=== PATIENT | male | born 1975 | race African-American/Black ===

== ENCOUNTER 2018-08-27 06:29 | Day surgery (SDC) | payer OTHER ==
[2018-08-27] VITALS (11 sets, daily range): BP systolic 110–125; BP diastolic 68–81; PULSE 54–64; RESP 10–18; Ht 177.8 cm; Wt 86.1 kg
[~2018-08-27] VITALS: Ht 177.8 cm; Wt 86.1 kg
[~2018-08-27 06:29] MED LIST: CEFAZOLIN 2 GM/50 ML (PMX) 50 ML IVPB SCH; SOD CHLORIDE 0.9% 1,000 ML IV SCH
[2018-08-27] MEDS ORDERED: ALBU90AE INHALATION (07:56)
[2018-08-27] MEDS ORDERED: MONT10TA24 PO (07:57)
[2018-08-27] MEDS ORDERED: BUPIVACAINE 0.25% (MPF) 30 ML INJ ONE (09:05)
--- NOTE | 2018-08-27 09:18 | PREAC ---
Date/Time of Note Date/Time of Note DATE: 08/27/18 TIME: 09:18 Anesthesia Eval and Record Evaluation Time Pre-Procedure Interview DATE: 08/27/18 TIME: 09:18 Age 43 Sex male NPO: 8 hrs Preoperative diagnosis scalp mass Planned procedure excision Past Medical History Past Medical History: Includes Pulm: Asthma Surgery & Anesthesia Issues No known issue Meds Anticoagulation: No Beta Kamilla within 24 hr: No Reason Beta Kamilla not given: Pt. not on B-Kamilla Reported Medications Montelukast Sodium* (Montelukast Sodium*) 10 Mg Tablet, 10 MG PO QHS, #30 TAB 08/27/18 Albuterol Sulfate (Proair Respiclick) 90 Mcg Aer.pow.ba, 1 PUFF INHALATION Q4 PRN for asthma attack, #1 BOTTLE 08/27/18 Current Medications Sodium Chloride 1,000 ml @ 75 mls/hr [id number] IV Last administered on 08/27/18at 07:41; Admin Dose 75 MLS/HR; Start 08/27/18 at 06:00; Stop 08/27/18 at 19:19 Cefazolin Sodium/ Dextrose 50 ml @ 100 mls/hr PREOP IVPB ; Start 08/27/18 at 06:00; Stop 08/27/18 at 19:00 Meds reviewed: Yes Allergies Coded Allergies: No Known Allergy (Unverified , 08/27/18) Allergies Reviewed: Yes Labs/Studies Labs Reviewed: Reviewed by anesthesiologist Result Diagram: 08/27/18 0730 08/27/18 0730 Laboratory Tests 08/27/18 07:30 test: N/A Pre-procedure Exam Last vitals Vital Signs Date Temp Pulse Resp B/P (MAP) Pulse Ox O2 O2 Flow FiO2 Time Delivery Rate 08/27/18 96.7 56 16 111/74 99 Room Air 07:48 (86) Airway: Adequate mouth opening, Adequate thyromental dist Mallampati: Mallampati I Teeth: Normal Lung: Normal Heart: Normal ASA Physical Status ASA physical status: 2 Emergency: None Pre-operative Attestations Prior to commencing anesthesia and surgery, the patient was re-evaluated, there was verification of: *The patient's identity *The results of appropriate recent lab work and preoperative vital signs *The above evaluation not changing prior to induction *Anesthetic plan, risk benefits, alternative and complications discussed with patient/family; questions answered; patient/family understands, accepts and wishes to proceed. YOHAN RG DO Aug 27, 2018 09:18
[2018-08-27] MEDS ORDERED: HYDROCODONE/APAP (5/325) TAB PO ONE (10:00)
--- NOTE | 2018-08-27 10:01 | OPR ---
Date/Time of Note Date/Time of Note DATE: 08/27/18 TIME: 09:59 Operative Report Procedure Date: Aug 27, 2018 Preoperative Diagnosis left scalp mass 3 cm Postoperative Diagnosis same Operation/Procedure Performed 1. excision of left scalp mass 3 cm 2. localized adjacent tissue transfer with the use of skin flaps 6 sq cm defect of left scalp 3. therapeutic injection of subcutaneous local anesthesia Surgeon see signature line Envelope Stuffer none Anesthesia Type: general Estimated Blood Loss: 0 - 10 ml's Transfusion none Specimen left scalp mass Grafts/Implants none Complications none Pt Condition Post Procedure: stable Indications This is a 43-year-old male with a left scalp mass. He request surgical excision of the mass. Risks alternatives benefits and personally discussed the patient. Patient expressed understanding and consents to the operation. Procedure Description Patient is taken to the OR and prepped and draped in usual sterile fashion. Surgical time was performed. IV antibiotics given. Transverse incision was made over the left posterior scalp mass. Dissection with cardioscan to the mass. The mass was then circumferentially excised using cautery off the cranium. Good hemostasis status. Due to tissue defect localization just transfer with use of skin flaps were performed. Multilayer closed with interrupted 0 Vicryl and running 4-0 Monocryl. Therapeutic taste local anesthesia was injected at the incision site. Steri-Strips and dry dressings were applied. Barbara CAREY Aug 27, 2018 10:01
[2018-08-27] MEDS ORDERED: SEVOFLURANE 15 MIN ONE (10:30)
[2018-08-27] MEDS ORDERED: LIDOCAINE 2% (SDV) 5 ML INJ ONE (10:30)
[2018-08-27] MEDS ORDERED: SUCCINYLCHOLINE CHLORIDE 100 MG/5 ML SYG IV ONE (10:38)
[2018-08-27] MEDS ORDERED: PROPOFOL 20 ML ONE (10:38)
[2018-08-27] MEDS ORDERED: ONDANSETRON 4 MG INJ ONE (10:39)
[2018-08-27] MEDS ORDERED: MIDAZOLAM 1 MG/ML 2 ML INJ ONE (10:39)
[2018-08-27] MEDS ORDERED: DEXAMETHASONE 4 MG/ML 5 ML INJ ONE (10:39)
[2018-08-27] MEDS ORDERED: CEFAZOLIN 1 GM INJ ONE ×2 (10:48)
--- NOTE | 2018-08-27 11:04 | PAC ---
Date/Time of Note Date/Time of Note DATE: 08/27/18 TIME: 11:03 Post-Anesthesia Notes Post-Anesthesia Note Last documented vital signs Vital Signs Date Temp Pulse Resp B/P (MAP) Pulse Ox O2 O2 Flow FiO2 Time Delivery Rate 08/27/18 98 75 16 140/62 99 Room Air Activity: WNL Respiratory function: WNL Cardiovascular function: WNL Mental status: Baseline Pain reasonably controlled: Yes Hydration appropriate: Yes Nausea/Vomiting absent: Yes YOHAN RG DO Aug 27, 2018 11:04
== END 2018-08-27 12:05 | disposition home or self-care (01) ==
LOC: SDS 06:29
PROVIDERS: ATTEND Surgery
DX: D17.0 Benign lipomatous neoplasm of skin and subcutaneous tissue of head, face and neck (principal); J45.909 Unspecified asthma, uncomplicated
CPT/HCPCS: 14020; 80053; 85025; 85610; 85730; 88307; J0690; J1100; J2250; J2405; J3010; Z7512; Z7610